=== PATIENT | female | born 2000 | race African-American/Black ===

== ENCOUNTER 2020-12-25 09:58 | Emergency (ER) | payer OTHER ==
[~2020-12-25] VITALS: Ht 165.1 cm; Wt 79.8 kg
--- NOTE | 2020-12-25 10:47 | NUR ---
DR RUBIO AT BEDSIDE, PT ASSESSMENT POC DISCUSSED AND QUESTIONS ANSWERED. PIV EST AND LABS DRAWN. CALL [employer] W/I REACH. VSS
[2020-12-25] MEDS ORDERED: SODIUM CHLORIDE 0.9% 1,000ML IVBOLUS ONE (11:00)
[2020-12-25] MEDS ORDERED: ONDANSETRON 2MG/ML, 2ML IVPush ONE (11:00)
[2020-12-25] MEDS ORDERED: MORPHINE SULFATE 4 MG/ML, 1ML IVPush PRN (11:00)
[2020-12-25] MEDS ORDERED: SODIUM CHLORIDE FLUSH 10ML SYR IVF ONE (11:00)
[2020-12-25] MEDS ORDERED: HALOPERIDOL 5 MG/ML IV ONE (11:00)
[2020-12-25] MEDS ORDERED: HALOPERIDOL 5 MG/ML ONE (11:01)
[2020-12-25] MEDS ORDERED: ONDANSETRON 2MG/ML, 2ML ONE (11:01)
--- NOTE | 2020-12-25 11:10 | NUR ---
POC DISCUSSED WITH PT AND QUESTIONS ANSWERED. PT MED NOTED, CARDIAC MONITORING INITIATED, IVF INFUSING W/O DIFFICULTY, VSS. CALL [facility] W/I REACH
[2020-12-25 11:11] LABS: BASOPHILS % (AUTO) 0 % (0-1); EOSINOPHILS % (AUTO) 0 % (1-7); LYMPHOCYTES % (AUTO) 14 % (22-44); MEAN CORPUSCULAR HEMOGLOBIN 30.3 pg (27.0-34.8); MEAN CORPUSCULAR HGB CONC 34.3 g/dL (32.4-35.8); MEAN PLATELET VOLUME 7.3 fL (7.4-10.4); MONOCYTES % (AUTO) 6 % (2-9); NEUTROPHILS % (AUTO) 80 % (42-75); PLATELET COUNT 401 x10^3/uL (130-400); RED CELL DISTRIBUTION WIDTH 14.1 % (9.6-15.2)
[2020-12-25 11:20] LABS: ALBUMIN 4.6 g/dL (3.4-5.0); ANION GAP 9 mmol/L (5-15); CALCIUM 9.6 mg/dL (8.5-10.1); CHLORIDE 108 mmol/L (98-107)
[2020-12-25 11:27] LABS: ALANINE AMINOTRANSFERASE 25 U/L (12-78); ALKALINE PHOSPHATASE 73 U/L (45-117); BILIRUBIN,TOTAL 1.8 mg/dL (0.2-1.0); CREATININE 1.05 mg/dL (0.55-1.02); TOTAL PROTEIN 9.5 g/dL (6.4-8.2)
[2020-12-25 12:00] VITALS: BP 119/57
--- NOTE | 2020-12-25 12:12 | NUR ---
PT VSS, PT RPTS PAIN AND NAUSEA IMPROVED AND IS REQUESTING WATER. ALL TESTS RESULTED AND CHART UP FOR RECHECK. PT OOB AND AMBULATED TO BATHROOM, UPRIGHT STEADY GAIT.
--- NOTE | 2020-12-25 12:50 | NUR ---
Patient/Caregiver given discharge instructions and they have confirmed that they understand the instructions. Patient ambulatory with steady gait. NAD, all questions answered appropriately, denies additional needs at this time. No personal belongings left in room after discharge. PT FATHER HERE TO DRIVE HER HOME.
== END 2020-12-25 12:50 | disposition home or self-care (01) ==
LOC: ED 11:43
DX: K29.00 Acute gastritis without bleeding (principal); N28.9 Disorder of kidney and ureter, unspecified; R94.31 Abnormal electrocardiogram [ECG] [EKG]; F17.210 Nicotine dependence, cigarettes, uncomplicated
CPT/HCPCS: 36415; 76700; 80053; 83690; 84703; 85025; 93005; 96361; 96374; 96375; 99285; J1630; J2405; J7030